=== PATIENT | female | born 1950 | race Caucasian/White ===

== ENCOUNTER 2021-05-05 19:18 | Inpatient (IN) | payer OTHER ==
[~2021-05-05] VITALS: Ht 167.6 cm; Wt 96.7 kg
[2021-05-05 20:34] LABS: BASOPHILS ABSOLUTE AUTO 0.03 K/mm3 (0.00-0.23); BASOPHILS PERCENT AUTO 0 % (0-2); EOSINOPHILS ABSOLUTE AUTO 0.31 K/mm3 (0.00-0.68); EOSINOPHILS PERCENT AUTO 3 % (0-6); Hematocrit 50.2 % (33.0-51.0); Hemoglobin 16.3 g/dL (11.5-16.0); IMMATURE GRAN ABSOLUTE AUTO 0.06 K/mm3 (0.00-0.10); IMMATURE GRAN PERCENT AUTO 1 % (0-1); LYMPHOCYTES ABSOLUTE AUTO 0.12 K/mm3 (0.84-5.20); LYMPHOCYTES PERCENT AUTO 1 % (21-46); MONOCYTES ABSOLUTE AUTO 0.45 K/mm3 (0.16-1.47); MONOCYTES PERCENT AUTO 4 % (4-13); Mean Corpuscular HGB 31.7 pg (26.0-34.0); Mean Corpuscular HGB Conc 32.5 g/dL (31.5-36.5); Mean Corpuscular Volume 98 fL (80-100); Mean Platelet Volume 9.4 fL (9.1-12.4); NEUTROPHILS ABSOLUTE AUTO 9.79 K/mm3 (1.96-9.15); NEUTROPHILS PERCENT AUTO 91 % (41-73); Platelet Count 172 K/mm3 (150-400); RDW Coefficient Variation 12.5 % (11.7-14.2); RDW Standard Deviation 45.5 fL (35.1-46.3); Red Blood Cell Count 5.15 M/mm3 (3.80-5.20); White Blood Cell Count 10.76 K/mm3 (4.00-11.30)
[2021-05-05 20:58] LABS: Albumin, Blood 3.3 g/dL (3.4-5.0); Albumin/Globulin Ratio 0.9 (0.8-1.8); Bilirubin, Total 1.2 mg/dL (0.1-1.0); Calcium, Blood 9.2 mg/dL (8.5-10.1); Creatinine, Blood 1.96 mg/dL (0.40-1.00); Globulin, Blood 3.8 g/dL (2.2-4.0); Potassium, Blood 4.7 mmol/L (3.5-5.5); Total Protein, Blood 7.1 g/dL (6.4-8.2)
[2021-05-06 00:08] LABS: Source, Urine Clean Catch
[2021-05-06 00:14] LABS: Glucose Qualitative, Urine Neg (Neg); Ketones, Urine Neg (Neg); Nitrite, Urine Neg (Neg)
[2021-05-06 00:16] LABS: Appearance, Urine Cloudy (Clear); Bilirubin, Urine 1+ (Neg); Color, Urine Yellow (P-Yellow); Leukocyte Esterase, Urine 1+ (Neg); Protein, Urine 2+ (Neg); Urobilinogen, Urine 1+ (Normal)
[2021-05-06 00:17] LABS: Blood, Urine 2+ (Neg)
[2021-05-06 00:22] LABS: Amorphous Heavy (0-Heavy); Bacteria Mod /hpf; Red Blood Cells, Urine 0-2 /hpf (0-2); Squamous Epithelial Cells Few /hpf (Few); WBC Cast Rare /lpf (0)
[2021-05-06 01:31] LABS: Influenza A, PCR NEGATIVE (NEGATIVE); Influenza B, PCR NEGATIVE (NEGATIVE); Resp Syncytial Virus, PCR NEGATIVE (NEGATIVE); SARS-Cov-2 (COVID-19) PCR, MMC NEGATIVE (NEGATIVE)
[2021-05-06 01:49] LABS: Hematocrit 45.2 % (33.0-51.0); Hemoglobin 14.6 g/dL (11.5-16.0); Mean Corpuscular HGB 31.8 pg (26.0-34.0); Mean Corpuscular HGB Conc 32.3 g/dL (31.5-36.5); Mean Corpuscular Volume 99 fL (80-100); Mean Platelet Volume 9.6 fL (9.1-12.4); Platelet Count 162 K/mm3 (150-400); RDW Coefficient Variation 12.7 % (11.7-14.2); RDW Standard Deviation 45.9 fL (35.1-46.3); Red Blood Cell Count 4.59 M/mm3 (3.80-5.20); White Blood Cell Count 12.03 K/mm3 (4.00-11.30)
[2021-05-06 02:08] LABS: Albumin, Blood 2.9 g/dL (3.4-5.0); Albumin/Globulin Ratio 0.9 (0.8-1.8); Bun/Creatinine Ratio 21.9 (12.0-20.0); Calcium, Blood 8.6 mg/dL (8.5-10.1); Creatinine, Blood 2.47 mg/dL (0.40-1.00); Globulin, Blood 3.3 g/dL (2.2-4.0); Potassium, Blood 4.4 mmol/L (3.5-5.5); Total Protein, Blood 6.2 g/dL (6.4-8.2)
[2021-05-06 02:10] LABS: BAND PERCENT MAN 11 % (0-8); BASOPHILS PERCENT MAN 0 % (0-2); EOSINOPHILS ABSOLUTE MAN 0.12 K/mm3 (0.00-0.68); EOSINOPHILS PERCENT MAN 1 % (0-6); LYMPHOCYTES ABSOLUTE MAN 0.12 K/mm3 (0.84-5.20); LYMPHOCYTES PERCENT MAN 1 % (21-46); MONOCYTES ABSOLUTE MAN 0.84 K/mm3 (0.16-1.47); MONOCYTES PERCENT MAN 7 % (4-13); NEUTROPHILS ABSOLUTE MAN 10.94 K/mm3 (1.96-9.15); SEG NEUTROPHILS PERCENT MAN 80 % (41-73); TOTAL CELLS COUNTED 100
[2021-05-06] MEDS ORDERED: OMEP20ER PO (03:38)
--- NOTE | 2021-05-06 06:26 | NUR ---
SHIFT SUMMARY PATIENT SLEPT THROUGHOUT SHIFT AFTER ARRIVING TO ICU FROM ED. TEMP REMAINS IN THE 99'SF. NS STILL INF TO RFA 22G IV. PATIENT HAD ONE BM AND VOIDED ONCE DURING SHIFT. SEE ASSESSMENTS FOR FURTHER INFO. NO OTHER MAJOR CHANGES.
--- NOTE | 2021-05-06 09:34 | NUR ---
Patient up to bathroom and walks with SBA. She is sitting at bedside eating breakfast and tolearted am meds.
--- NOTE | 2021-05-06 12:30 | NUR ---
Patient has been up independent to bathroom and repositions self. VSS. CBG 129. Patient tolerated lunch and 100% and 360 ml of liquids. Remains med no tele.;
--- NOTE | 2021-05-06 18:05 | NUR ---
Patient remains on RA and sats >90%. She is independent in room and is up to bathroom by self and stable. Right wound dressing intact and had no signs of drainage. She tolerated 100% of dinner and meds. VSS. She remains med status.
[2021-05-06 21:14] LABS: Vancomycin, Random 7.1 ug/mL
[2021-05-07 03:49] LABS: Hematocrit 42.4 % (33.0-51.0); Hemoglobin 13.6 g/dL (11.5-16.0); Mean Corpuscular HGB 31.9 pg (26.0-34.0); Mean Corpuscular HGB Conc 32.1 g/dL (31.5-36.5); Mean Corpuscular Volume 99 fL (80-100); Mean Platelet Volume 9.6 fL (9.1-12.4); Platelet Count 143 K/mm3 (150-400); RDW Standard Deviation 48.2 fL (35.1-46.3); Red Blood Cell Count 4.27 M/mm3 (3.80-5.20); White Blood Cell Count 6.05 K/mm3 (4.00-11.30)
[2021-05-07 04:24] LABS: Albumin, Blood 2.6 g/dL (3.4-5.0); Albumin/Globulin Ratio 0.8 (0.8-1.8); Bilirubin, Total 0.7 mg/dL (0.1-1.0); Bun/Creatinine Ratio 35.3 (12.0-20.0); Calcium, Blood 8.3 mg/dL (8.5-10.1); Creatinine, Blood 1.16 mg/dL (0.40-1.00); Globulin, Blood 3.3 g/dL (2.2-4.0); Potassium, Blood 4.2 mmol/L (3.5-5.5); Thyroid Stimulating Hormone 0.394 uIU/mL (0.360-4.800); Total Protein, Blood 5.9 g/dL (6.4-8.2)
--- NOTE | 2021-05-07 06:28 | NUR ---
SHIFT SUMMARY PATIENT SLEPT T/O SHIFT. USED CALL LIGHT TO MAKE NEEDS KNOWN. REQUIRED ONE DOSE TYLENOL 650MG PO FOR FEVER OF 100.9. ABLE TO TRANSFER ON OWN AND WALK ABOUT ROOM. NO CHANGES DURING SHIFT.
--- NOTE | 2021-05-07 09:05 | NUR ---
0700: SBR FROM TINO TRAORE. PT RESTING IN ROOM, NO DISTRESS NOTED. BED IN LOW/LOCKED POSITION, CLUTTER-FREE ENVIRONMENT, CALL LIGHT IN REACH. PT DEMONSTRATES UNDERSTANDING OF CALL LIGHT AND BED CONTROLS FOR POSITION ADJUSTMENT. PT STATES SHE WILL ONLY AMBULATE WHEN WEARING NON-SKID SOCKS.
[2021-05-07] MEDS ORDERED: CLIN150 PO (10:00)
[2021-05-07] MEDS ORDERED: LEVFLO500 PO (10:01)
--- NOTE | 2021-05-07 10:50 | NUR ---
1045: IV D/C'D TIP INTACT, NO S/S OF INFILTRATION, NO BLEEDING NOTED, DRESSING APPLIED AND PT VERBALIZED UNDERSTANDING TO REMOVE AFTER 1 HR. PACKING REMOVED FROM L GROIN PER PT REQUEST. MEPILEX EQUIVALENT DRESSING APPLIED AND PT VERBALIZED UNDERSTANDING TO REMOVE AFTER 1 DAY TO CHECK FOR INCREASING S/S OF INFECTION, AFTER WHICH SHE CAN REPLACE DRESSING AND MAINTAIN PER FELLER SEAM OPERATOR INSTRUCTIONS. SHE VERBALIZED UNDERSTANDING OF S/S OF INFECTION. PT BROUGHT TO VEHICLE VIA W/C BY THIS RN AND WAS SENT HOME W/ DAUGHTER IN POV.
== END 2021-05-07 10:45 | disposition home or self-care (01) | DRG 872 ==
LOC: ER 19:18 → ICUW 05-06 00:51
PROVIDERS: Internal Medicine; Physician Assistant; Student in an Organized Health Care Education/Training Program; ADMIT Internal Medicine
DX: A41.9 Sepsis, unspecified organism (principal); N17.9 Acute kidney failure, unspecified; L03.314 Cellulitis of groin; R73.9 Hyperglycemia, unspecified; Z88.0 Allergy status to penicillin; I95.9 Hypotension, unspecified; F17.210 Nicotine dependence, cigarettes, uncomplicated; E86.0 Dehydration; Z86.14 Personal history of Methicillin resistant Staphylococcus aureus infection; D72.829 Elevated white blood cell count, unspecified; F43.9 Reaction to severe stress, unspecified; Z20.822 Contact with and (suspected) exposure to COVID-19
CPT/HCPCS: 0241U; 36415; 71045; 80053; 80202; 81001; 82947; 83605; 83880; 84443; 85025; 85027; 87040; 87086; 93005; 93010; 93306; 96374; 96375; 99285-25; A9270; J0456; J0696; J1650; J3370; J7030; J7050

== ENCOUNTER 2022-06-28 12:24 | Inpatient (IN) | payer OTHER ==
[~2022-06-28] VITALS: Ht 165.1 cm; Wt 107.1 kg
[~2022-06-28 12:24] MED LIST: CLIN150 PO; LEVFLO500 PO; OMEP20ER PO
[2022-06-28] MEDS ORDERED: SULFAMETHOXAZO1 EAC1 PO (13:05)
[2022-06-28 13:13] LABS: BASOPHILS ABSOLUTE AUTO 0.06 K/mm3 (0.00-0.23); BASOPHILS PERCENT AUTO 0 % (0-2); EOSINOPHILS ABSOLUTE AUTO 0.27 K/mm3 (0.00-0.68); EOSINOPHILS PERCENT AUTO 2 % (0-6); IMMATURE GRAN ABSOLUTE AUTO 0.06 K/mm3 (0.00-0.10); IMMATURE GRAN PERCENT AUTO 0 % (0-1); LYMPHOCYTES PERCENT AUTO 13 % (21-46); MONOCYTES ABSOLUTE AUTO 1.25 K/mm3 (0.16-1.47); MONOCYTES PERCENT AUTO 7 % (4-13); Mean Corpuscular HGB 32.1 pg (26.0-34.0); Mean Corpuscular HGB Conc 33.3 g/dL (31.5-36.5); Mean Corpuscular Volume 96 fL (80-100); Mean Platelet Volume 9.1 fL (9.1-12.4); NEUTROPHILS ABSOLUTE AUTO 13.49 K/mm3 (1.96-9.15); NEUTROPHILS PERCENT AUTO 78 % (41-73); Platelet Count 238 K/mm3 (150-400); RDW Coefficient Variation 12.7 % (11.7-14.2); Red Blood Cell Count 4.98 M/mm3 (3.80-5.20); White Blood Cell Count 17.33 K/mm3 (4.00-11.30)
[2022-06-28 13:31] LABS: Albumin, Blood 3.3 g/dL (3.4-5.0); Albumin/Globulin Ratio 0.8 (0.8-1.8); Bilirubin, Total 0.6 mg/dL (0.1-1.0); Bun/Creatinine Ratio 22.6 (12.0-20.0); Calcium, Blood 9.2 mg/dL (8.5-10.1); Creatinine, Blood 1.59 mg/dL (0.40-1.00); Globulin, Blood 3.9 g/dL (2.2-4.0); Potassium, Blood 4.8 mmol/L (3.5-5.5); Total Protein, Blood 7.2 g/dL (6.4-8.2)
[2022-06-28 14:15] LABS: Base Excess Venous 1.3 mmol/L; Bicarbonate Venous 24.2 mmol/L (24.0-30.0); PCO2 Venous 56.7 mmHg (38-42)
[2022-06-28 14:47] LABS: Influenza A, PCR NEGATIVE (NEGATIVE); Influenza B, PCR NEGATIVE (NEGATIVE); Resp Syncytial Virus, PCR NEGATIVE (NEGATIVE); SARS-Cov-2 (COVID-19) PCR, MMC NEGATIVE (NEGATIVE)
[2022-06-28 15:19] LABS: Source, Urine Straight Cath
[2022-06-28 15:24] LABS: Appearance, Urine Hazy (Clear); Bilirubin, Urine Neg (Neg); Blood, Urine 1+ (Neg); Color, Urine Yellow (P-Yellow); Glucose Qualitative, Urine Neg (Neg); Ketones, Urine Neg (Neg); Leukocyte Esterase, Urine 1+ (Neg); Nitrite, Urine Neg (Neg); Protein, Urine 2+ (Neg); Urobilinogen, Urine NORM (Normal)
[2022-06-28 15:36] LABS: Bacteria Few /hpf; Red Blood Cells, Urine 0-2 /hpf (0-2); Squamous Epithelial Cells Few /hpf (Few)
[2022-06-28 15:37] LABS: Amorphous Light (0-Heavy); WBC Cast 0-2 /lpf (0)
[2022-06-28 18:03] LABS: Base Excess Venous -2.2 mmol/L; Bicarbonate Venous 22.2 mmol/L (24.0-30.0); PCO2 Venous 45.4 mmHg (38-42); pH Blood Venous 7.33 (7.34-7.37)
--- NOTE | 2022-06-28 19:38 | NUR ---
SHIFT SUMMARY PTN ARRIVED ER ADMIT AT 1610. STACI JIMÉNEZ GOT REPORT FROM ER PRIOR TO ARRIVAL. PTN HAS BEEN SLEEPING BUT AROUSABLE SINCE ARRIVAL, HOWEVER, SHE HAS HAD MOMENTS WHERE SHE TRIED TO GET OUT OF BED, TOOK HER PULSE OXIMETER MONITOR OFF HER FINGER, TOOK HER CLOTHES OFF, AND SOMEHOW DISCOUNTED HER IV LINE FROM THE RUNNING BAG RUNNING. SHE WAS ABLE TO SAY THE CORRECT DAY, MONTH, YEAR, WHERE SHE WAS AND WHY SHE IS HERE, STATING THAT SHE HAS BEEN CONFUSED AND NOT FEELING WELL FOR THE PAST COUPLE OF DAYS. PTN WILL POSSIBLY BE TRANSFERRED TO BACK [facility]. REPORT GIVEN TO FAUZIA JIMÉNEZ.
[2022-06-29 05:11] LABS: Base Excess Venous -0.3 mmol/L; PCO2 Venous 43.5 mmHg (38-42); pH Blood Venous 7.37 (7.34-7.37)
[2022-06-29 05:35] LABS: Albumin, Blood 3.4 g/dL (3.4-5.0); Bilirubin, Total 0.4 mg/dL (0.1-1.0); Bun/Creatinine Ratio 34.8 (12.0-20.0); Calcium, Blood 8.8 mg/dL (8.5-10.1); Creatinine, Blood 0.86 mg/dL (0.40-1.00); Globulin, Blood 3.4 g/dL (2.2-4.0); Potassium, Blood 4.7 mmol/L (3.5-5.5); Total Protein, Blood 6.8 g/dL (6.4-8.2)
[2022-06-29 05:56] LABS: BASOPHILS ABSOLUTE AUTO 0.04 K/mm3 (0.00-0.23); BASOPHILS PERCENT AUTO 0 % (0-2); EOSINOPHILS ABSOLUTE AUTO 0.28 K/mm3 (0.00-0.68); EOSINOPHILS PERCENT AUTO 2 % (0-6); Hematocrit 43.4 % (33.0-51.0); Hemoglobin 14.2 g/dL (11.5-16.0); IMMATURE GRAN ABSOLUTE AUTO 0.06 K/mm3 (0.00-0.10); IMMATURE GRAN PERCENT AUTO 1 % (0-1); LYMPHOCYTES ABSOLUTE AUTO 2.64 K/mm3 (0.84-5.20); LYMPHOCYTES PERCENT AUTO 23 % (21-46); MONOCYTES ABSOLUTE AUTO 0.93 K/mm3 (0.16-1.47); MONOCYTES PERCENT AUTO 8 % (4-13); Mean Corpuscular HGB 31.7 pg (26.0-34.0); Mean Corpuscular HGB Conc 32.7 g/dL (31.5-36.5); Mean Corpuscular Volume 97 fL (80-100); NEUTROPHILS ABSOLUTE AUTO 7.79 K/mm3 (1.96-9.15); NEUTROPHILS PERCENT AUTO 66 % (41-73); RDW Coefficient Variation 12.8 % (11.7-14.2); RDW Standard Deviation 45.1 fL (35.1-46.3); Red Blood Cell Count 4.48 M/mm3 (3.80-5.20); White Blood Cell Count 11.74 K/mm3 (4.00-11.30)
[2022-06-29 05:57] LABS: Mean Platelet Volume 9.6 fL (9.1-12.4); Platelet Count 202 K/mm3 (150-400)
--- NOTE | 2022-06-29 07:26 | NUR ---
SONG AND DANCE PERFORMER SUMMARY PT TRANSFERED FROM MEDICAL FLOOR TO SCU UNIT DUE TO EPISODES OF CONFUSION. PT IS A/OX3 WITH CONFUSION/FORGETFULLNESS. PT ABLE TO STATE WHERE SHE IS AT BUT BECOMES CONFUSED AND PULLS OFF HER NC AND PULSE OX. PT IS A SBA TO THE BS. SHE IS WEAK AND SOB WITH ACTIVITY. PT ON 3L O2 NC. CONT PULSE OX; PT DESATS WITH ACTIVITY OR WHEN REMOVING CANNULA. LR INFUSING AT 125 HR. PT ON REMOTE MONITOR. BED ALARM IS SET; PT WILL ATTEMPT OOB W/O CALLING. NOT USING CALL LIGHT TO REACH STAFF FOR NEEDS. PT HAS FEQUENT URINATION T/O THE NIGHT WITH SMALL VOIDS.
[2022-06-29] MEDS ORDERED: LINE600 PO (16:17)
[2022-06-29] MEDS ORDERED: VISBIOME 112.51 EACH PO (16:18)
== END 2022-06-29 16:45 | disposition home or self-care (01) | DRG 602 ==
LOC: ER 12:24 → MEDS 14:53
PROVIDERS: Nurse Practitioner Acute Care; Student in an Organized Health Care Education/Training Program; ADMIT Internal Medicine
DX: L02.211 Cutaneous abscess of abdominal wall (principal); G92.8 Other toxic encephalopathy; J96.91 Respiratory failure, unspecified with hypoxia; N18.4 Chronic kidney disease, stage 4 (severe); E87.29 Other acidosis; R91.8 Other nonspecific abnormal finding of lung field; Z20.822 Contact with and (suspected) exposure to COVID-19; I48.91 Unspecified atrial fibrillation; K21.9 Gastro-esophageal reflux disease without esophagitis; E66.01 Morbid (severe) obesity due to excess calories; F17.210 Nicotine dependence, cigarettes, uncomplicated; L01.03 Bullous impetigo; L03.311 Cellulitis of abdominal wall; Z23 Encounter for immunization; Z98.890 Other specified postprocedural states; Z79.899 Other long term (current) drug therapy; Z86.14 Personal history of Methicillin resistant Staphylococcus aureus infection; Z68.38 Body mass index [BMI] 38.0-38.9, adult; Z88.0 Allergy status to penicillin
CPT/HCPCS: 0241U; 36415; 51701; 71046; 80053; 81001; 82803; 83605; 84145; 85025; 87040; 87086; 90686; 93005; 93010; 94640; 94664; 94762; 96365-59; 96367-59; 99285-25; A9270; J0696; J1650; J3370; J7030; J7050; J7120

== ENCOUNTER 2022-12-04 08:02 | Day surgery (SDC) | payer OTHER ==
[~2022-12-04] VITALS: Ht 165.1 cm; Wt 102.1 kg
[~2022-12-04 08:02] MED LIST changes: +LINE600 PO; +SULFAMETHOXAZO1 EAC1 PO; +VISBIOME 112.51 EACH PO
[2022-12-04] MEDS ORDERED: ALBU2.5V5 (08:32)
[2022-12-04] MEDS ORDERED: CENTRUM SILVER1 EAC2 (08:33)
[2022-12-04] MEDS ORDERED: FLAX (08:33)
[2022-12-04] MEDS ORDERED: Vitamin C100 M1 (08:33)
[2022-12-04] MEDS ORDERED: COLLAGEN SKIN1 EACH (08:33)
[2022-12-04] MEDS ORDERED: MAGCHL64ER (08:34)
[2022-12-04 10:53] VITALS: BP 143/66
--- NOTE | 2022-12-04 10:59 | NUR ---
12/04/22 1059 [facility] UPON ARRIVAL TO STEPDOWN PT OXYGEN WAS 89-91% AND PATIENT'S LUNGS WERE DIMINISHED. AFTER ENCOURGEMENT TO TAKE SOME DEEP BREATHS AND COUGH PATIENT'S SPO2 IMPROVED TO 93-95% AND LUNGS WERE CLEAR WITH SLIGHT DIMINSHED ON FILLING TECHNICIAN LOWER RIGHT BUT AIR MOVEMENT STILL HEARD. PATIENT OFFERED BREATHING TREATMENT BUT SHE STATED THAT SHE FELT FINE AND DECLINED BREATHING TREATMENT. PATIENT HAS COPD AND SPO2 DURING ADMIT PRIOR TO PROCEDURE WAS 92%. PATIENT MAINTAINING 93-95% NOW AND EXPRESSES READINESS TO GO HOME. PATIENT ENCOURAGED TO QUIT SMOKING. PATIENT VERBALIZED UNDERSTANDING.
== END 2022-12-04 10:55 | disposition home or self-care (01) ==
LOC: ORSCSDS 08:02
PROVIDERS: Surgery
PROC: 0DJD8ZZ Inspection of Lower Intestinal Tract, Via Natural or Artificial Opening Endoscopic (ICD-10-PCS; principal; 2022-12-04 09:15)
DX: Z12.11 Encounter for screening for malignant neoplasm of colon (principal); K57.30 Diverticulosis of large intestine without perforation or abscess without bleeding; F17.210 Nicotine dependence, cigarettes, uncomplicated; J44.9 Chronic obstructive pulmonary disease, unspecified; I10 Essential (primary) hypertension; Z79.899 Other long term (current) drug therapy; E66.9 Obesity, unspecified; Z68.37 Body mass index [BMI] 37.0-37.9, adult
CPT/HCPCS: J2405; J2704; J7120

== ENCOUNTER → 2024-04-20 | Outpatient (CLI) | payer OTHER ==
[~2024-04-20] MED LIST changes: +ALBU2.5V5; +CENTRUM SILVER1 EAC2; +CODACE30 PO; +COLLAGEN SKIN1 EACH; +FLAX; +GLYCOPYRROLATE INH; +HYDCHL25 PO; +IBUP600 PO; +LOSARTAN POTASS25 M2 PO; +MAGCHL64ER; +METFORMIN HCL500 M2 PO; +NICO21TP TOP; +PRED20 PO; +PROAIR RESPICL90 MCG INH; +ROSUVASTATIN CA10 MG PO; +STIOLTO RESPIMAT4 G1 INH; +Vitamin C100 M1; +[UNRECOGNIZED DRUG - OTHER] INH
[2024-04-20 12:18] LABS: BASOPHILS ABSOLUTE AUTO 0.05 K/mm3 (0.00-0.23); BASOPHILS PERCENT AUTO 0 % (0-2); EOSINOPHILS PERCENT AUTO 1 % (0-6); Hematocrit 41.6 % (33.0-51.0); Hemoglobin 13.6 g/dL (11.5-16.0); IMMATURE GRAN ABSOLUTE AUTO 0.14 K/mm3 (0.00-0.10); IMMATURE GRAN PERCENT AUTO 1 % (0-1); LYMPHOCYTES ABSOLUTE AUTO 1.78 K/mm3 (0.84-5.20); LYMPHOCYTES PERCENT AUTO 15 % (21-46); MONOCYTES ABSOLUTE AUTO 1.01 K/mm3 (0.16-1.47); MONOCYTES PERCENT AUTO 8 % (4-13); Mean Corpuscular HGB 31.9 pg (26.0-34.0); Mean Corpuscular HGB Conc 32.7 g/dL (31.5-36.5); Mean Corpuscular Volume 97 fL (80-100); Mean Platelet Volume 8.6 fL (9.1-12.4); NEUTROPHILS PERCENT AUTO 75 % (41-73); Platelet Count 293 K/mm3 (150-400); RDW Coefficient Variation 12.2 % (11.7-14.2); RDW Standard Deviation 44.1 fL (35.1-46.3); Red Blood Cell Count 4.27 M/mm3 (3.80-5.20); White Blood Cell Count 12.08 K/mm3 (4.00-11.30)
[2024-04-20 12:39] LABS: Albumin, Blood 3.5 g/dL (3.4-5.0); Albumin/Globulin Ratio 0.8 (0.8-1.8); Bilirubin, Total 0.2 mg/dL (0.1-1.0); Bun/Creatinine Ratio 35.1 (12.0-20.0); Calcium, Blood 8.9 mg/dL (8.5-10.1); Creatinine, Blood 2.25 mg/dL (0.40-1.00); Globulin, Blood 4.5 g/dL (2.2-4.0); Potassium, Blood 4.3 mmol/L (3.5-5.5)
== END | disposition home or self-care (01) ==
LOC: LAB SHORT 11:57 → LAB 11:57
PROVIDERS: Physician Assistant
DX: E86.0 Dehydration (principal); R31.9 Hematuria, unspecified
CPT/HCPCS: 80053; 83605; 85025; 87040; 87077; 87086; 87186

== ENCOUNTER 2024-04-21 10:22 | Inpatient (IN) | payer OTHER ==
[~2024-04-21] VITALS: Ht 170.2 cm; Wt 100.8 kg
[~2024-04-21 10:22] MED LIST changes: -CODACE30 PO; -GLYCOPYRROLATE INH; -HYDCHL25 PO; -IBUP600 PO; -LOSARTAN POTASS25 M2 PO; -METFORMIN HCL500 M2 PO; -NICO21TP TOP; -PRED20 PO; -PROAIR RESPICL90 MCG INH; -ROSUVASTATIN CA10 MG PO; -STIOLTO RESPIMAT4 G1 INH; -[UNRECOGNIZED DRUG - OTHER] INH
[2024-04-21 11:19] LABS: BASOPHILS ABSOLUTE AUTO 0.05 K/mm3 (0.00-0.23); BASOPHILS PERCENT AUTO 1 % (0-2); EOSINOPHILS ABSOLUTE AUTO 0.07 K/mm3 (0.00-0.68); EOSINOPHILS PERCENT AUTO 1 % (0-6); Hematocrit 41.7 % (33.0-51.0); Hemoglobin 14.4 g/dL (11.5-16.0); IMMATURE GRAN ABSOLUTE AUTO 0.11 K/mm3 (0.00-0.10); IMMATURE GRAN PERCENT AUTO 1 % (0-1); LYMPHOCYTES ABSOLUTE AUTO 1.61 K/mm3 (0.84-5.20); LYMPHOCYTES PERCENT AUTO 16 % (21-46); MONOCYTES ABSOLUTE AUTO 0.71 K/mm3 (0.16-1.47); MONOCYTES PERCENT AUTO 7 % (4-13); Mean Corpuscular HGB 32.3 pg (26.0-34.0); Mean Corpuscular HGB Conc 34.5 g/dL (31.5-36.5); Mean Corpuscular Volume 94 fL (80-100); NEUTROPHILS ABSOLUTE AUTO 7.56 K/mm3 (1.96-9.15); NEUTROPHILS PERCENT AUTO 75 % (41-73); RDW Coefficient Variation 11.9 % (11.7-14.2); RDW Standard Deviation 41.2 fL (35.1-46.3); Red Blood Cell Count 4.46 M/mm3 (3.80-5.20); White Blood Cell Count 10.11 K/mm3 (4.00-11.30)
[2024-04-21 11:34] LABS: Mean Platelet Volume 8.9 fL (9.1-12.4); Platelet Count 352 K/mm3 (150-400)
[2024-04-21 11:53] LABS: Albumin, Blood 3.5 g/dL (3.4-5.0); Albumin/Globulin Ratio 0.7 (0.8-1.8); Bilirubin, Total 0.4 mg/dL (0.1-1.0); Bun/Creatinine Ratio 77.3 (12.0-20.0); Calcium, Blood 9.2 mg/dL (8.5-10.1); Creatinine, Blood 0.69 mg/dL (0.40-1.00); Magnesium, Blood 3.1 mg/dL (1.6-2.4); Phosphorus, Blood 2.5 mg/dL (2.5-4.9); Potassium, Blood 5.3 mmol/L (3.5-5.5); Total Protein, Blood 8.5 g/dL (6.4-8.2)
[2024-04-21] MEDS ORDERED: Lactated Ringer's 1,000 ML IV ONE (12:00)
[2024-04-21] MEDS ORDERED: Ibuprofen 600 MG Tab PO ONE (14:30)
[2024-04-21] MEDS ORDERED: Acetaminophen 500 MG Tab PO ONE (14:30)
[2024-04-21] MEDS ORDERED: Clindamycin 900mg in D5W 50ML 50 ML IV ONE (14:30)
[2024-04-21] MEDS ORDERED: Dexamethasone Sod Phos 10 MG/ML 1ML VIAL IV ONE (14:30)
[2024-04-21] MEDS ORDERED: HYDCHL25 PO (15:10)
[2024-04-21] MEDS ORDERED: ROSUVASTATIN CA10 MG PO (15:11)
[2024-04-21] MEDS ORDERED: METFORMIN HCL500 M2 PO (15:11)
[2024-04-21] MEDS ORDERED: PROAIR RESPICL90 MCG INH (15:12)
[2024-04-21] MEDS ORDERED: LOSARTAN POTASS25 M2 PO (15:12)
[2024-04-21] MEDS ORDERED: STIOLTO RESPIMAT4 G1 INH (15:13)
[2024-04-21] MEDS ORDERED: Bisacodyl 10 MG Supp PR PRN (15:15)
[2024-04-21] MEDS ORDERED: NS 1,000 ML IV SCH (15:20)
[2024-04-21] MEDS ORDERED: Ondansetron 4 MG TAB PO PRN (15:20)
[2024-04-21] MEDS ORDERED: Magnesium Hydroxide Conc 10 ML UDC PO PRN (15:20)
[2024-04-21] MEDS ORDERED: FLU VACC TS2024-25(6MOS UP)/PF 45 MCG/0.5 ML SYRINGE IM PRN (15:20)
[2024-04-21] MEDS ORDERED: Acetaminophen 500 MG Tab PO PRN (15:25)
[2024-04-21] MEDS ORDERED: Ibuprofen 600 MG Tab PO PRN (15:25)
[2024-04-21] MEDS ORDERED: Ipratropium/Albuterol SulF 2.5-0.5MG/3 ML Amp INH PRN (15:30)
[2024-04-21] MEDS ORDERED: Dexamethasone Sod Phos 10 MG/ML 1ML VIAL IV SCH (16:00)
[2024-04-21] MEDS ORDERED: Insulin Human Lispro 100 Units/ML 3ML Syringe SC SCH (16:30)
--- NOTE | 2024-04-21 18:08 | NUR ---
PT ARRIVED ON MED FLOOR WITH DAUGHTER AT BEDSIDE. UNABLE TO DO ADMIT AT THIS TIME DUE TO ADMITTING/ER PROCESSES. CHEMISTRY QUALITY CONTROL TECHNICIAN AWARE AND WILL NOTIFY RN WHEN ABLE TO ADMIT
[2024-04-21 18:17] VITALS: BP 142/85
[2024-04-21] MEDS ORDERED: CLIN150 PO (18:18)
[2024-04-21] MEDS ORDERED: CODACE30 PO (18:18)
--- NOTE | 2024-04-21 19:19 | NUR ---
PT FALLING ASLEEP DURING QUESTIONING, ORIENTED X4, SHALLOW BREATHING, 88% R/A. DR. BARRIOS NOTIFIED, PER MD, WILL BE ORDERING VBG AND NICOTINE PATCH. PLACE PT ON 1L NC
[2024-04-21 19:49] VITALS: BP 142/90
[2024-04-21 21:07] LABS: Base Excess Venous -3.5 mmol/L; Bicarbonate Venous 21.6 mmol/L (24.0-30.0); PCO2 Venous 41.9 mmHg (38-42); pH Blood Venous 7.34 (7.34-7.37)
--- NOTE | 2024-04-21 21:14 | NUR ---
Pt with decreased sats from start of my shift at 1845, was on 1L of O2, now on 4L to keep sats >90%.
[2024-04-22] MEDS ORDERED: Clindamycin 900mg in D5W 50ML 50 ML IV SCH
--- NOTE | 2024-04-22 02:16 | NUR ---
Ptt with low O2 sats 85%, up to BR at time so was doing activity without any O2. O2 now at 5L/ NC.
[2024-04-22 03:42] VITALS: BP 185/84
[2024-04-22 04:06] VITALS: BP 135/77
--- NOTE | 2024-04-22 04:12 | NUR ---
Pt A&OO x4, VS b/p elevated this am, but this was after an activity, rechecked and b/p decreased significantly. O2 sats decreased in night without activity and O2 now at 5L, continues to decrease with activity but does correct itself with rest. Pt has to sleep with HOB elevated. Denies pain. L/S are diminished in several lobes, no cough noted this shift, and no edema. Pt up to BR with assist and FWW to BR. Awaiting ENT consult for potential drainage of abscess.
[2024-04-22 06:26] LABS: BASOPHILS ABSOLUTE AUTO 0.05 K/mm3 (0.00-0.23); BASOPHILS PERCENT AUTO 1 % (0-2); EOSINOPHILS ABSOLUTE AUTO 0.01 K/mm3 (0.00-0.68); EOSINOPHILS PERCENT AUTO 0 % (0-6); Hematocrit 38.8 % (33.0-51.0); Hemoglobin 13.2 g/dL (11.5-16.0); IMMATURE GRAN ABSOLUTE AUTO 0.14 K/mm3 (0.00-0.10); IMMATURE GRAN PERCENT AUTO 2 % (0-1); LYMPHOCYTES ABSOLUTE AUTO 1.31 K/mm3 (0.84-5.20); LYMPHOCYTES PERCENT AUTO 16 % (21-46); MONOCYTES PERCENT AUTO 5 % (4-13); Mean Corpuscular HGB 32.7 pg (26.0-34.0); Mean Corpuscular Volume 96 fL (80-100); NEUTROPHILS ABSOLUTE AUTO 6.44 K/mm3 (1.96-9.15); NEUTROPHILS PERCENT AUTO 77 % (41-73); RDW Coefficient Variation 11.9 % (11.7-14.2); RDW Standard Deviation 41.7 fL (35.1-46.3); Red Blood Cell Count 4.04 M/mm3 (3.80-5.20); White Blood Cell Count 8.35 K/mm3 (4.00-11.30)
[2024-04-22 06:27] LABS: Mean Platelet Volume 8.5 fL (9.1-12.4)
[2024-04-22 06:38] LABS: Bun/Creatinine Ratio 67.8 (12.0-20.0); Calcium, Blood 8.9 mg/dL (8.5-10.1); Creatinine, Blood 0.58 mg/dL (0.40-1.00); Potassium, Blood 4.4 mmol/L (3.5-5.5)
[2024-04-22 07:47] VITALS: BP 140/86
[2024-04-22] MEDS ORDERED: Nicotine 21 MG PATCH TOP SCH (09:00)
[2024-04-22] MEDS ORDERED: Losartan Potassium 25 MG Tab PO SCH (09:00)
[2024-04-22] MEDS ORDERED: Rosuvastatin Calcium 10 MG Tab PO SCH (09:00)
[2024-04-22] MEDS ORDERED: Enoxaparin 40 MG/0.4 ML SYR SC SCH (09:00)
[2024-04-22] MEDS ORDERED: HydroCHLOROthiazide 25 mg Tab PO SCH (09:00)
[2024-04-22] MEDS ORDERED: Ipratropium/Albuterol SulF 2.5-0.5MG/3 ML Amp INH SCH (11:45)
[2024-04-22 15:20] VITALS: BP 140/106
--- NOTE | 2024-04-22 17:25 | NUR ---
PT REPORTS FEELING BETTER, AWAITING ENT CONSULT. DR. CORNEJO OFFICE CONTACTED, MD WAS IN SURGERY AT THE TIME. PT FAMILY AT BEDSIDE. O2 NEEDS INCREASE WITH AMBULATION PT DESAT TO 82% WITH AMBULATION TO BATHROOM, MAY NEED HOME O2 EVAL. INDEPENDENT, ALERT AND ORIENTED X4, CALLS APPROPRIATELY. REPORTS 1-2/10 PAIN IN JAW, DECLINES PAIN MEDICATION. IV ANTIBIOTICS CONTINUED
[2024-04-22] MEDS ORDERED: BEVESPI AEROS10.7 G1 INH (18:39)
[2024-04-22 19:34] VITALS: BP 169/76
[2024-04-23 04:05] VITALS: BP 188/80
--- NOTE | 2024-04-23 05:22 | NUR ---
SHIFT SUMMARY. PATIENT IS A&OX4, INDEPENDENT IN ROOM AND CALLS APPROPRIATELY. PATIENT HAS AN INCREASED NEED FOR OXYGEN WITH AMBULATION-PATIENT DESATS INTO THE 80'S-PATIENT IS ON 3-4LPM RA IS BASELINE-PATIENT WOULD BENEFIT FROM HOME O2 EVAL. PATIENT REPORTS THAT APPROXIMATELY AROUND 0500 THAT SHE FELT IF HER ABCESS IN HER MOUTH MIGHT HAVE DRAINED-PATIENT REPORTS THAT SHE HAD SOME GROSS TASTING STUFF IN HER MOUTH AND SHE FEELS SLIGHT IMPROVEMENT TO THE PRESSURE IN HER MOUTH. PATIENT C/O PAIN-MEDICATED X3-4 TIMES. BED IS LOCKED IN THE LOWEST POSITION WITH CALL LIGHT IN REACH. CARE IS ONGOING.
[2024-04-23 06:16] LABS: BASOPHILS ABSOLUTE AUTO 0.04 K/mm3 (0.00-0.23); BASOPHILS PERCENT AUTO 0 % (0-2); EOSINOPHILS ABSOLUTE AUTO 0.02 K/mm3 (0.00-0.68); EOSINOPHILS PERCENT AUTO 0 % (0-6); Hematocrit 37.9 % (33.0-51.0); Hemoglobin 12.9 g/dL (11.5-16.0); IMMATURE GRAN PERCENT AUTO 1 % (0-1); LYMPHOCYTES ABSOLUTE AUTO 2.31 K/mm3 (0.84-5.20); LYMPHOCYTES PERCENT AUTO 19 % (21-46); MONOCYTES ABSOLUTE AUTO 1.13 K/mm3 (0.16-1.47); MONOCYTES PERCENT AUTO 9 % (4-13); Mean Corpuscular Volume 94 fL (80-100); Mean Platelet Volume 8.5 fL (9.1-12.4); NEUTROPHILS ABSOLUTE AUTO 8.38 K/mm3 (1.96-9.15); NEUTROPHILS PERCENT AUTO 70 % (41-73); Platelet Count 367 K/mm3 (150-400); RDW Coefficient Variation 11.7 % (11.7-14.2); RDW Standard Deviation 40.7 fL (35.1-46.3); Red Blood Cell Count 4.03 M/mm3 (3.80-5.20); White Blood Cell Count 11.98 K/mm3 (4.00-11.30)
[2024-04-23 06:36] LABS: Albumin, Blood 3.2 g/dL (3.4-5.0); Albumin/Globulin Ratio 0.8 (0.8-1.8); Bilirubin, Total 0.2 mg/dL (0.1-1.0); Bun/Creatinine Ratio 46.5 (12.0-20.0); Calcium, Blood 9.2 mg/dL (8.5-10.1); Creatinine, Blood 0.75 mg/dL (0.40-1.00); Globulin, Blood 4.2 g/dL (2.2-4.0); Potassium, Blood 3.8 mmol/L (3.5-5.5); Total Protein, Blood 7.4 g/dL (6.4-8.2)
[2024-04-23 07:38] VITALS: BP 184/84
[2024-04-23 07:40] VITALS: BP 134/77
[2024-04-23] MEDS ORDERED: Vancomycin HCL 2,000 MG in NS 500 ML IV ONE (15:40)
[2024-04-23 16:00] VITALS: BP 131/85
[2024-04-23] MEDS ORDERED: NS 250 ML IV PRN (16:20)
--- NOTE | 2024-04-23 18:18 | NUR ---
SHIFT SUMMARY PT AOX4, INDEPENDENT IN THE ROOM. MEDICATED FOR PAIN PER THE EMAR. NO OTHER ACUTE COMPLAINTS. PT CALLS AND MAKES HER NEEDS KNOWN. REPOSITIONS SELF IN BED. FAMILY AT THE BS ALL SHIFT. CALL LIGHT WITHIN REACH, BED LOCKED AND IN THE LOWEST POSITION. WILL REPORT TO ONCOMING NURSE.
[2024-04-23 19:33] VITALS: BP 112/79
[2024-04-23] MEDS ORDERED: Lactobacil 2-S.Thermo-Bifido 1 1 Cap PO SCH (21:00)
[2024-04-24 03:41] VITALS: BP 142/87
[2024-04-24] MEDS ORDERED: Vancomycin HCL 1,000 MG in NS 250 ML IV SCH (04:00)
--- NOTE | 2024-04-24 05:47 | NUR ---
SHIFT SUMMARY. PATIENT IS A&OX4. INDEPENDENT IN ROOM. MONAE CALLS APPROPRIATELY AND IS ABLE TO MAKE HER NEEDS KNOWN. PATIENT MEDICATED FOR PAIN PER PATIENT NEEDS. BED IS LOCKED IN THE LOWEST POSITION WITH CALL LIGHT IN REACH. CARE IS ONGOING.
[2024-04-24 06:17] LABS: BASOPHILS ABSOLUTE AUTO 0.03 K/mm3 (0.00-0.23); BASOPHILS PERCENT AUTO 0 % (0-2); EOSINOPHILS ABSOLUTE AUTO 0.02 K/mm3 (0.00-0.68); EOSINOPHILS PERCENT AUTO 0 % (0-6); Hematocrit 35.6 % (33.0-51.0); Hemoglobin 12.4 g/dL (11.5-16.0); IMMATURE GRAN ABSOLUTE AUTO 0.08 K/mm3 (0.00-0.10); IMMATURE GRAN PERCENT AUTO 1 % (0-1); LYMPHOCYTES ABSOLUTE AUTO 2.41 K/mm3 (0.84-5.20); LYMPHOCYTES PERCENT AUTO 23 % (21-46); MONOCYTES ABSOLUTE AUTO 0.96 K/mm3 (0.16-1.47); MONOCYTES PERCENT AUTO 9 % (4-13); Mean Corpuscular HGB 32.5 pg (26.0-34.0); Mean Corpuscular HGB Conc 34.8 g/dL (31.5-36.5); Mean Corpuscular Volume 93 fL (80-100); Mean Platelet Volume 8.3 fL (9.1-12.4); NEUTROPHILS ABSOLUTE AUTO 6.96 K/mm3 (1.96-9.15); NEUTROPHILS PERCENT AUTO 67 % (41-73); Platelet Count 362 K/mm3 (150-400); RDW Coefficient Variation 11.6 % (11.7-14.2); RDW Standard Deviation 39.5 fL (35.1-46.3); Red Blood Cell Count 3.82 M/mm3 (3.80-5.20); White Blood Cell Count 10.46 K/mm3 (4.00-11.30)
[2024-04-24 06:48] LABS: Albumin, Blood 2.9 g/dL (3.4-5.0); Albumin/Globulin Ratio 0.8 (0.8-1.8); Bilirubin, Total 0.3 mg/dL (0.1-1.0); Bun/Creatinine Ratio 40.5 (12.0-20.0); Calcium, Blood 8.6 mg/dL (8.5-10.1); Creatinine, Blood 0.59 mg/dL (0.40-1.00); Globulin, Blood 3.7 g/dL (2.2-4.0); Potassium, Blood 3.9 mmol/L (3.5-5.5); Total Protein, Blood 6.6 g/dL (6.4-8.2)
[2024-04-24 07:45] VITALS: BP 132/85
[2024-04-24] MEDS ORDERED: PRED20 PO (11:48)
[2024-04-24] MEDS ORDERED: LINE600 PO (11:48)
[2024-04-24] MEDS ORDERED: HYDCHL25 PO (11:48)
[2024-04-24] MEDS ORDERED: VISBIOME 112.51 EACH PO (11:49)
[2024-04-24] MEDS ORDERED: NICO21TP TOP (11:49)
[2024-04-24] MEDS ORDERED: IBUP600 PO (11:49)
--- NOTE | 2024-04-24 13:30 | NUR ---
SHIFT SUMMARY AND DISCHARGE PATIENT ALERT AND INTERACTIVE. PATIENT INDEPENDENT IN THE ROOM. PATIENT STATES THAT ORAL ABCESS IS NOW DRAINING. PATIENT HAS BEEN INSTRUCTED TO DO SALINE RINSES BY HYGENIST. DISCHARGE INSTRUCTIONS REVIEWED WITH PATIENT AND DAUGHTER. HOME O2 EVAL DONE. PATIENT BEING DISCHARGED WITH O2. [facility]. PATIENT TAKEN OUT VIA WHEELCHAIR BY NOZZLE CEMENT SPRAYER HELPER. ROOM CHECK DONE BEFORE DEPARTURE. IV DC'D PRIOR TO DISCHARGE.
== END 2024-04-24 13:45 | disposition home or self-care (01) | DRG 158 ==
LOC: ER 10:22 → MEDS 15:15 → ER 17:35 → MEDS 18:11 → ENPENDDIS 04-24 11:33 → MEDS 04-24 13:45
PROVIDERS: Family Medicine Adult Medicine; Physician Assistant; Student in an Organized Health Care Education/Training Program; ADMIT Hospitalist
DX: K04.7 Periapical abscess without sinus (principal); J44.1 Chronic obstructive pulmonary disease with (acute) exacerbation; N17.9 Acute kidney failure, unspecified; E11.9 Type 2 diabetes mellitus without complications; I10 Essential (primary) hypertension; E78.5 Hyperlipidemia, unspecified; B96.89 Other specified bacterial agents as the cause of diseases classified elsewhere; K21.9 Gastro-esophageal reflux disease without esophagitis; I48.91 Unspecified atrial fibrillation; Z98.890 Other specified postprocedural states; Z98.51 Tubal ligation status; E86.0 Dehydration; F17.210 Nicotine dependence, cigarettes, uncomplicated; Z88.0 Allergy status to penicillin; Z88.2 Allergy status to sulfonamides; Z79.899 Other long term (current) drug therapy; Z86.14 Personal history of Methicillin resistant Staphylococcus aureus infection
CPT/HCPCS: 36415; 70491; 80048; 80053; 82803; 82947; 83735; 84100; 85025; 87040; 94640; 94664; 94760; 94761; 94762; 96361; 96365-59; 96366; 96372; 96375; 96376; 99285-25; A9270; G0378; J1100; J1650; J3370; J7030; J7040; J7050; J7120; Q9967

== ENCOUNTER 2024-04-28 22:28 | Inpatient (IN) | payer OTHER ==
[~2024-04-28] VITALS: Ht 167.6 cm; Wt 99.8 kg
[~2024-04-28 22:28] MED LIST changes: +CODACE30 PO; +GLYCOPYRROLATE INH; +HYDCHL25 PO; +IBUP600 PO; +LOSARTAN POTASS25 M2 PO; +METFORMIN HCL500 M2 PO; +NICO21TP TOP; +PRED20 PO; +PROAIR RESPICL90 MCG INH; +ROSUVASTATIN CA10 MG PO; +STIOLTO RESPIMAT4 G1 INH; +[UNRECOGNIZED DRUG - OTHER] INH
[2024-04-28 23:21] LABS: Hematocrit 30.6 % (33.0-51.0); Hemoglobin 10.3 g/dL (11.5-16.0); Mean Corpuscular HGB 32.1 pg (26.0-34.0); Mean Corpuscular HGB Conc 33.7 g/dL (31.5-36.5); Mean Corpuscular Volume 95 fL (80-100); Mean Platelet Volume 8.3 fL (9.1-12.4); Platelet Count 442 K/mm3 (150-400); RDW Coefficient Variation 11.8 % (11.7-14.2); RDW Standard Deviation 41.1 fL (35.1-46.3); Red Blood Cell Count 3.21 M/mm3 (3.80-5.20)
[2024-04-28 23:41] LABS: BAND PERCENT MAN 3 % (0-8); BASOPHILS ABSOLUTE MAN 0.25 K/mm3 (0.00-0.23); BASOPHILS PERCENT MAN 1 % (0-2); EOSINOPHILS ABSOLUTE MAN 0.25 K/mm3 (0.00-0.68); EOSINOPHILS PERCENT MAN 1 % (0-6); LYMPHOCYTES ABSOLUTE MAN 4.08 K/mm3 (0.84-5.20); LYMPHOCYTES PERCENT MAN 16 % (21-46); MONOCYTES ABSOLUTE MAN 1.53 K/mm3 (0.16-1.47); MONOCYTES PERCENT MAN 6 % (4-13); NEUTROPHILS ABSOLUTE MAN 19.38 K/mm3 (1.96-9.15); SEG NEUTROPHILS PERCENT MAN 73 % (41-73); TOTAL CELLS COUNTED 100
[2024-04-28 23:44] LABS: Albumin/Globulin Ratio 0.9 (0.8-1.8); Bilirubin, Total 0.2 mg/dL (0.1-1.0); Bun/Creatinine Ratio 43.3 (12.0-20.0); Calcium, Blood 10.1 mg/dL (8.5-10.1); Creatinine, Blood 0.95 mg/dL (0.40-1.00); Globulin, Blood 3.2 g/dL (2.2-4.0); Potassium, Blood 4.4 mmol/L (3.5-5.5); Total Protein, Blood 6.2 g/dL (6.4-8.2)
[2024-04-29] MEDS ORDERED: NS 1,000 ML IV SCH (01:00)
[2024-04-29] MEDS ORDERED: MetroNIDAZOLE 500MG/NS 100 ml 100 ML IV ONE (01:00)
[2024-04-29] MEDS ORDERED: CefTRIAXone Sodium 1,000 MG in NS 50 ML IV ONE (01:00)
[2024-04-29 01:09] LABS: Source, Urine Clean Catch
[2024-04-29 01:12] LABS: Bilirubin, Urine Neg (Neg); Blood, Urine 4+ (Neg); Glucose Qualitative, Urine Neg (Neg); Ketones, Urine Neg (Neg); Leukocyte Esterase, Urine Neg (Neg); Nitrite, Urine Neg (Neg); Protein, Urine 2+ (Neg); Urobilinogen, Urine NORM (Normal)
[2024-04-29 01:20] LABS: Hematocrit 28.9 % (33.0-51.0); Hemoglobin 9.7 g/dL (11.5-16.0)
[2024-04-29 01:35] LABS: Appearance, Urine Clear (Clear); Color, Urine Pale Yellow (P-Yellow)
[2024-04-29] MEDS ORDERED: FLU VACC TS2024-25(6MOS UP)/PF 45 MCG/0.5 ML SYRINGE IM ONE (01:35)
[2024-04-29] MEDS ORDERED: Ondansetron HCl 2 MG / ML 2ML Vial IV PRN (01:35)
[2024-04-29 01:37] LABS: Amorphous Light (0-Heavy); Bacteria Few /hpf; Red Blood Cells, Urine 0-2 /hpf (0-2); Squamous Epithelial Cells Few /hpf (Few); White Blood Cells, Urine 0-2 /hpf (0-5)
[2024-04-29] MEDS ORDERED: Lactated Ringer's 1,000 ML IV SCH (02:00)
[2024-04-29 03:23] VITALS: BP 137/73
--- NOTE | 2024-04-29 04:10 | NUR ---
SHIFT SUMMARY PT ARRIVED TO MEDICAL FLOOR @0320. PT TRANSFERRED INDEPENDENTLY FROM THE [facility] TO THE HOSPITAL BED. PT IS A/O X4, PLEASANT AND COOPERATIVE WITH CARE. NPO. LR 1 OUT OF 2 BAGS INFUSING ORDERED. SARWAT CHARGE NURSE COMPLETED THE ADMISSION ASSESSMENT, SKIN CHECK WITH THIS TRACK PRODUCTION ENGINEER. BED AT THE LOWEST POSITION, CALL LIGHT W/I REACH. PT IS ABLE TO MKE HER NEEDS KNOWN.
[2024-04-29 06:01] LABS: BASOPHILS ABSOLUTE AUTO 0.04 K/mm3 (0.00-0.23); BASOPHILS PERCENT AUTO 0 % (0-2); EOSINOPHILS ABSOLUTE AUTO 0.07 K/mm3 (0.00-0.68); EOSINOPHILS PERCENT AUTO 0 % (0-6); Hematocrit 26.2 % (33.0-51.0); Hemoglobin 8.7 g/dL (11.5-16.0); IMMATURE GRAN ABSOLUTE AUTO 0.13 K/mm3 (0.00-0.10); IMMATURE GRAN PERCENT AUTO 1 % (0-1); LYMPHOCYTES ABSOLUTE AUTO 3.25 K/mm3 (0.84-5.20); LYMPHOCYTES PERCENT AUTO 20 % (21-46); MONOCYTES ABSOLUTE AUTO 0.79 K/mm3 (0.16-1.47); MONOCYTES PERCENT AUTO 5 % (4-13); Mean Corpuscular HGB Conc 33.2 g/dL (31.5-36.5); Mean Corpuscular Volume 96 fL (80-100); Mean Platelet Volume 8.4 fL (9.1-12.4); NEUTROPHILS PERCENT AUTO 74 % (41-73); Platelet Count 343 K/mm3 (150-400); RDW Coefficient Variation 11.9 % (11.7-14.2); RDW Standard Deviation 41.9 fL (35.1-46.3); Red Blood Cell Count 2.72 M/mm3 (3.80-5.20); White Blood Cell Count 16.18 K/mm3 (4.00-11.30)
[2024-04-29 06:12] LABS: International Normalized Ratio 1.06; Prothrombin Time Results 11.3 Sec (9.7-11.5)
[2024-04-29 06:30] LABS: Albumin, Blood 2.7 g/dL (3.4-5.0); Bilirubin, Total 0.2 mg/dL (0.1-1.0); Bun/Creatinine Ratio 60.7 (12.0-20.0); Calcium, Blood 8.7 mg/dL (8.5-10.1); Creatinine, Blood 0.69 mg/dL (0.40-1.00); Globulin, Blood 2.7 g/dL (2.2-4.0); Potassium, Blood 4.2 mmol/L (3.5-5.5); Total Protein, Blood 5.4 g/dL (6.4-8.2)
[2024-04-29 07:52] VITALS: BP 121/55
[2024-04-29 09:15] LABS: BASOPHILS ABSOLUTE AUTO 0.04 K/mm3 (0.00-0.23); BASOPHILS PERCENT AUTO 0 % (0-2); EOSINOPHILS ABSOLUTE AUTO 0.09 K/mm3 (0.00-0.68); EOSINOPHILS PERCENT AUTO 1 % (0-6); Hemoglobin 8.5 g/dL (11.5-16.0); IMMATURE GRAN ABSOLUTE AUTO 0.09 K/mm3 (0.00-0.10); IMMATURE GRAN PERCENT AUTO 1 % (0-1); LYMPHOCYTES ABSOLUTE AUTO 3.34 K/mm3 (0.84-5.20); LYMPHOCYTES PERCENT AUTO 23 % (21-46); MONOCYTES ABSOLUTE AUTO 0.71 K/mm3 (0.16-1.47); MONOCYTES PERCENT AUTO 5 % (4-13); Mean Corpuscular HGB 32.1 pg (26.0-34.0); Mean Corpuscular Volume 94 fL (80-100); Mean Platelet Volume 8.3 fL (9.1-12.4); NEUTROPHILS ABSOLUTE AUTO 10.44 K/mm3 (1.96-9.15); NEUTROPHILS PERCENT AUTO 71 % (41-73); Platelet Count 354 K/mm3 (150-400); RDW Coefficient Variation 11.9 % (11.7-14.2); RDW Standard Deviation 40.9 fL (35.1-46.3); Red Blood Cell Count 2.65 M/mm3 (3.80-5.20); White Blood Cell Count 14.71 K/mm3 (4.00-11.30)
--- NOTE | 2024-04-29 14:48 | NUR ---
PT CALLED AID INTO ROOM AT 1142 PT HAD FILLED TOILET DARK RED WATERY STOOL. DR SOLOMON WAS NOTIFIED. DR SOLOMON STATED IF PT HAS AN ACTIVE BLEED SHE NEEDS TO BE SENT TO A HOSPITAL WITH A LEATHER GOODS II ASSEMBLER AND THE HOSPITALIST HANDLING THE CASE NEEDED TO GET THIS DONE. DR SOLOMON ALSO SAID PT WOULD BE GOOD TO STAY ON A CLEAR DIET. DR HOSKINS WAS NOTIFIED AT 1405 OF THE SITUATION AND WAS TOLD WHAT DR SOLOMON HAD ADVISED. WILL CONTINUE TO CLOSELY MONITOR PT.
--- NOTE | 2024-04-29 15:20 | NUR ---
PT CALLED AID AT 1512 WITH TOILET FILLED AGAIN WITH WATERY DARK RED STOOL AGAIN. DR HOSKINS WAS NOTIFIED IMMEDIATELY AND STATED HE WOULD ORDER A STAT HGB. WILL CONTINUE TO MONITOR CLOSELY.
[2024-04-29 15:56] VITALS: BP 118/42
[2024-04-29 15:57] LABS: Hematocrit 24.1 % (33.0-51.0); Hemoglobin 8.2 g/dL (11.5-16.0); Mean Corpuscular HGB 32.7 pg (26.0-34.0); Mean Corpuscular Volume 96 fL (80-100); Mean Platelet Volume 8.2 fL (9.1-12.4); Platelet Count 326 K/mm3 (150-400); RDW Coefficient Variation 11.9 % (11.7-14.2); RDW Standard Deviation 41.7 fL (35.1-46.3); Red Blood Cell Count 2.51 M/mm3 (3.80-5.20); White Blood Cell Count 12.34 K/mm3 (4.00-11.30)
--- NOTE | 2024-04-29 16:58 | NUR ---
PT IS AOX4 AND COOPERATIVE OF CARE. PT IS ABLE TO MAKE NEEDS KNOWN. CONTINUE TO MONITOR BLOODY STOOLS. HGB IN AM WAS 8.5 LAST ONE TAKE WAS 8.2. DR HOSKINS IS AWARE AND ORDERED FREQUENT LABS TO MONITOR CLOSELY. PT IS INDEPENDENT AND DENIES STEWART EPISODES OF DIZZINESS OR FEELING LIGHT HEADED. WILL CONTINUE TO MONITOR CALL LIGHT IS WITHIN REACH.
[2024-04-29 19:09] VITALS: BP 142/57
[2024-04-29 20:37] LABS: Hematocrit 22.9 % (33.0-51.0); Hemoglobin 7.6 g/dL (11.5-16.0); Mean Corpuscular HGB 32.3 pg (26.0-34.0); Mean Corpuscular HGB Conc 33.2 g/dL (31.5-36.5); Mean Corpuscular Volume 97 fL (80-100); Mean Platelet Volume 8.6 fL (9.1-12.4); Platelet Count 315 K/mm3 (150-400); RDW Standard Deviation 42.9 fL (35.1-46.3); Red Blood Cell Count 2.35 M/mm3 (3.80-5.20); White Blood Cell Count 12.98 K/mm3 (4.00-11.30)
[2024-04-30] VITALS (9 sets, daily range): BP systolic 97–150; BP diastolic 42–92
[2024-04-30 00:29] LABS: Hematocrit 22.3 % (33.0-51.0); Hemoglobin 7.5 g/dL (11.5-16.0); Mean Corpuscular HGB 32.3 pg (26.0-34.0); Mean Corpuscular HGB Conc 33.6 g/dL (31.5-36.5); Mean Corpuscular Volume 96 fL (80-100); Mean Platelet Volume 8.1 fL (9.1-12.4); Platelet Count 320 K/mm3 (150-400); RDW Standard Deviation 42.4 fL (35.1-46.3); Red Blood Cell Count 2.32 M/mm3 (3.80-5.20); White Blood Cell Count 16.58 K/mm3 (4.00-11.30)
--- NOTE | 2024-04-30 03:26 | NUR ---
SHIFT SUMMARY PT IS A/O X4, INDEPENDENT W/I THE HOSPITAL ROOM. PT APPEARS WEARY. LR INFUSING ORDERED 75MLS/HR. PT DENIES PAIN AND DISCOMFORT DURING THIS SHIFT. NO ACUTE EVENTS. HGB 7.5 AT MIDNIGHT LAB. 1X BROWIN WATERY STOOL, NO RED COLOR NOTED. BED AT THE LOWEST POSITION, CALL LIGHT W/I REACH. PT WOULD LIKE TO SPEAK WITH THE PROVIDER TODAY REGARDING THE CURRENT PLAN OF CARE. CONTINUING THE PT EDUCATION. PT ABLE TO MAKE HER NEEDS KNOWN AND COOPERATIVE, PLEASANT.
[2024-04-30 06:05] LABS: Hematocrit 20.9 % (33.0-51.0); Hemoglobin 6.7 g/dL (11.5-16.0); Mean Corpuscular HGB 31.6 pg (26.0-34.0); Mean Corpuscular HGB Conc 32.1 g/dL (31.5-36.5); Mean Corpuscular Volume 99 fL (80-100); Mean Platelet Volume 8.4 fL (9.1-12.4); Platelet Count 314 K/mm3 (150-400); RDW Coefficient Variation 11.9 % (11.7-14.2); RDW Standard Deviation 43.1 fL (35.1-46.3); Red Blood Cell Count 2.12 M/mm3 (3.80-5.20); White Blood Cell Count 13.03 K/mm3 (4.00-11.30)
--- NOTE | 2024-04-30 06:20 | NUR ---
@0500 PT'S Hgb DROPPED FROM 7.5 TO 6.7. THIS POWER SYSTEM ELECTRICAL ENGINEER CONTACTED ON-CALL HOSPITALIST . 1 UNIT OF RBC'S PER TELEPHONE ORDER. ENTERED TO [employer]. CONSENT TO RECEIVE BLOOD IS SIGNED BY THE ED DRTk AND THE PT AND IS ALREADY IN PT'S CHART. WILL REPORT TO INCOMING SHIFT NURSE. NO BLOODY OR LOOSE STOOLS DURING THE FACE BURLER PER PT REPORT.
[2024-04-30 06:40] LABS: Bun/Creatinine Ratio 53.7 (12.0-20.0); Calcium, Blood 8.5 mg/dL (8.5-10.1); Creatinine, Blood 0.61 mg/dL (0.40-1.00); Potassium, Blood 3.9 mmol/L (3.5-5.5)
[2024-04-30] MEDS ORDERED: NS 500 ML IV SCH (07:55)
[2024-04-30 13:59] LABS: Hematocrit 22.9 % (33.0-51.0); Hemoglobin 7.7 g/dL (11.5-16.0); Mean Corpuscular HGB 32.9 pg (26.0-34.0); Mean Corpuscular HGB Conc 33.6 g/dL (31.5-36.5); Mean Corpuscular Volume 98 fL (80-100); Mean Platelet Volume 8.2 fL (9.1-12.4); Platelet Count 281 K/mm3 (150-400); RDW Coefficient Variation 12.3 % (11.7-14.2); Red Blood Cell Count 2.34 M/mm3 (3.80-5.20); White Blood Cell Count 15.61 K/mm3 (4.00-11.30)
--- NOTE | 2024-04-30 15:24 | NUR ---
SHIFT SUMMARY MS ACEVEDO RECEIVED 1 UNIT PRBCS THIS MORNING. SHE TOLERATED THE INFUSION WELL. NO ADVERSE REACTIONS NOTED. NO C/O PAIN OR SOB. SHE REMAINS ON CLEAR LIQUID DIET WITH A PLAN FOR COLONOSCOPY 05/01. 1 BLACK STOOL SO FAR THIS SHIFT. ON TELEMETRY IN , NO CALLS FROM CYBER INTEL PLANNER. UP INDEPENDENTLY TO THE SHOWER AND BATHROOM, STEADY GAIT. BED LOW, CALL LIGHT IN REACH.
[2024-04-30] MEDS ORDERED: Pantoprazole Sodium 40 MG Injection IV ONE (17:00)
[2024-04-30] MEDS ORDERED: Polyethylene Glycol 3350 17 gm PO ONE (18:00)
[2024-05-01] VITALS (12 sets, daily range): BP systolic 75–148; BP diastolic 42–73
--- NOTE | 2024-05-01 05:16 | NUR ---
SHIFT SUMMARY NOC PT A/O X 4. PLEASANT AND COOPERATIVE WITH CARE. VSS. NO ACUTE EVENTS TO REPORT. PT HAS BEEN ON SIP AND CHIPS SINCE 0100 AND WILL BE NPO @ 1000 TODAY FOR COLONOSCOPY IN PM. PT HAS STARTD ALVA BOWL PREP @ 0600 THIS AM. PT HAS HAD MULTIPLE LIQUID BLACK/GREEN STOOLS THIS SHIFT. PT HGB 7.7 YESTERDAY AFTER RECEIVING 1 UNIT PRBC, AWAITING AM LABS FOR POSSIBLE TRANSFUSION. PT ON TELE SINUS RHYTHM IN 'S. PT CURRENTLY RESTING WITH BED IN LOWEST POSITION, AND CALL LIGHT ASHANTI GARCIA.
[2024-05-01] MEDS ORDERED: Peg/Electrolytes 4,000 ML BTL PO ONE ×2 (06:00→08:00)
[2024-05-01] MEDS ORDERED: Pantoprazole Sodium 40 MG Injection IV SCH (06:00)
[2024-05-01 07:05] LABS: Hematocrit 18.7 % (33.0-51.0); Hemoglobin 6.4 g/dL (11.5-16.0)
[2024-05-01] MEDS ORDERED: Lactated Ringer's 1,000 ML IV SCH (14:50)
[2024-05-01] MEDS ORDERED: propofoL 80 ML IV ONE (15:31)
--- NOTE | 2024-05-01 15:52 | NUR ---
REPORT RECEIVED VERIFIED PT A/O X 4 AND IS ATTEMPTING TO DRINK GOLYTLY FOR PROCEDURE. PT HAVING VERY DARK BLACK AND TARRY STOOLS, C/O SOME DIZZINESS AND TIREDNESS BUT JORDY WELL. PT HAS CALL LIGHT AT BEDSIDE IF NEEDING ASSISTENCE.
--- NOTE | 2024-05-01 15:54 | NUR ---
PT REFUSING TO FINISH PREP, MAKING HER SICK TO HER STOMACH AND DOSENT WANT TO CONTINUE. SDS WAS NOTIFIED.
--- NOTE | 2024-05-01 15:55 | NUR ---
1030 BLOOD STARTED, AND JORDY WELL PT WAS GIVEN ZOFRAN AND ENC TO FINISH PREP. 1245 PT CONT BLOOD TRANSFUSION AND HAS NO S/S OF DISTRESS. 1300 PT FINISHED PREP AND IS NOW NPO.
--- NOTE | 2024-05-01 15:55 | NUR ---
DR HOSKINS NOTIFIED OF LOW H/H BLOOD WAS ORDERED PT VSS.
--- NOTE | 2024-05-01 15:57 | NUR ---
1500 PT TAKEN TO PROCEDURE.
--- NOTE | 2024-05-01 16:12 | NUR ---
05/01/24 1612 Jae Mckeon History, Chart, Medications and Allergies reviewed before start of procedure. MONITOR INTACT WITH CONTINUOUS PULSE OXIMETRY, CONTINUOUS END TITAL CO2, AND INTERMITTENT BLOOD PRESSURE. 3-LEAD EKG REVIEWED WITH PHYSICIAN PRIOR TO START OF PROCEDURE. O2 VIA POM INTACT THROUGHOUT SEDATION/PROCEDURE. Bite Block Placed. TELE BOX REMOVED FROM PT AND NOTIFIED TABLEAU ANALYST OF SHUTTING OFF.
[2024-05-01 17:42] LABS: Hematocrit 19.9 % (33.0-51.0); Hemoglobin 6.8 g/dL (11.5-16.0)
[2024-05-01] MEDS ORDERED: Lactated Ringer's 500 ML IV SCH (18:00)
--- NOTE | 2024-05-01 19:41 | NUR ---
pt arrived from procedure a/o drowsy yet responsive. vss were not stable and pt was noted to be hypotensive, pt was laid flat, and placed in trendelenburg, and Dr Bahena was notified, 500ml bolus was given with little response. H/H was reported to Dr. Bahena and 1 unit PRBC was ordered and styarted, response was good and pt stated she was feel great. pt was sat up for dinner and finished meal, VSS when report given to oncoming nurse.
--- NOTE | 2024-05-01 22:13 | NUR ---
pt alert/oriented. Independently used bsc.
--- NOTE | 2024-05-02 04:18 | NUR ---
SHIFT SUMMARY PATIENT FINISHED ONE UNIT OF PRBC STARTED ON DAY SHIFT. TOLERATED WELL. AXOX 4 AND INDEPENDENT. DENIES CHEST PAIN AND N/V. ON 2L O2 NC PRN AND TRIAL OFF AND DESTAT INTO HIGH 80'S. PIV INTACT. VSS/AFEBRILE. TELE MONITOR NSR 88. CALL LIGHT IN REACH. BED IN LOWEST POSITION. WILL CONTINUE TO MONITOR UNTIL DAY SHIFT NURSE ASSUMES CARE.
[2024-05-02] MEDS ORDERED: Omeprazole 20 MG CapCR PO SCH (06:00)
[2024-05-02 06:11] LABS: Hematocrit 21.4 % (33.0-51.0); Hemoglobin 7.1 g/dL (11.5-16.0); Mean Corpuscular HGB 32.3 pg (26.0-34.0); Mean Corpuscular HGB Conc 33.2 g/dL (31.5-36.5); Mean Corpuscular Volume 97 fL (80-100); Mean Platelet Volume 8.8 fL (9.1-12.4); Platelet Count 215 K/mm3 (150-400); RDW Coefficient Variation 13.4 % (11.7-14.2); RDW Standard Deviation 47.8 fL (35.1-46.3); White Blood Cell Count 11.37 K/mm3 (4.00-11.30)
[2024-05-02 06:44] LABS: Bun/Creatinine Ratio 20.5 (12.0-20.0); Calcium, Blood 8.5 mg/dL (8.5-10.1); Creatinine, Blood 0.64 mg/dL (0.40-1.00); Potassium, Blood 3.6 mmol/L (3.5-5.5)
[2024-05-02 08:04] VITALS: BP 117/46
[2024-05-02 10:04] LABS: Hematocrit 22.2 % (33.0-51.0); Hemoglobin 7.4 g/dL (11.5-16.0); Mean Corpuscular HGB 32.3 pg (26.0-34.0); Mean Corpuscular HGB Conc 33.3 g/dL (31.5-36.5); Mean Corpuscular Volume 97 fL (80-100); Mean Platelet Volume 8.6 fL (9.1-12.4); NRBC ABSOLUTE 0.02 K/mm3 (0.00-0.02); NRBC Auto 0.2 /100 WBC (0.0-0.2); Platelet Count 238 K/mm3 (150-400); RDW Coefficient Variation 13.4 % (11.7-14.2); RDW Standard Deviation 47.4 fL (35.1-46.3); Red Blood Cell Count 2.29 M/mm3 (3.80-5.20); White Blood Cell Count 11.08 K/mm3 (4.00-11.30)
[2024-05-02 10:21] VITALS: BP 138/59
[2024-05-02 15:27] VITALS: BP 123/65
--- NOTE | 2024-05-02 17:00 | NUR ---
REPORT RECEIVED VERIFIED PT DOING MUCH BETTER TODAY NO C/O PAIN NO S/S OF DISTRESS, PT ABLE TO MAKE NEEDS KNOWN AND IS STATING THAT SHE WILL CALL IF NEEDING ASSISTENCE. CALL LIGHT WITHIN REACH. POSSIBLE DISCHARGE TOMORROW PT CURRENTLY ON RA AND JORDY WELL.
[2024-05-02 17:19] LABS: Hematocrit 22.2 % (33.0-51.0); Hemoglobin 7.4 g/dL (11.5-16.0); Mean Corpuscular HGB 32.3 pg (26.0-34.0); Mean Corpuscular HGB Conc 33.3 g/dL (31.5-36.5); Mean Corpuscular Volume 97 fL (80-100); Mean Platelet Volume 8.7 fL (9.1-12.4); Platelet Count 252 K/mm3 (150-400); RDW Coefficient Variation 13.4 % (11.7-14.2); RDW Standard Deviation 47.5 fL (35.1-46.3); Red Blood Cell Count 2.29 M/mm3 (3.80-5.20); White Blood Cell Count 12.84 K/mm3 (4.00-11.30)
[2024-05-02 19:28] VITALS: BP 145/61
[2024-05-02 21:59] LABS: Hematocrit 20.5 % (33.0-51.0); Hemoglobin 6.9 g/dL (11.5-16.0); Mean Corpuscular HGB 32.7 pg (26.0-34.0); Mean Corpuscular HGB Conc 33.7 g/dL (31.5-36.5); Mean Corpuscular Volume 97 fL (80-100); Mean Platelet Volume 8.5 fL (9.1-12.4); Platelet Count 246 K/mm3 (150-400); RDW Coefficient Variation 13.3 % (11.7-14.2); RDW Standard Deviation 47.1 fL (35.1-46.3); Red Blood Cell Count 2.11 M/mm3 (3.80-5.20)
--- NOTE | 2024-05-02 22:43 | NUR ---
Hgb: 6.9 DOWN FROM 7.4, HOSPITALIST DR LAZAR NOTIFIED AND ORDERED ONE UNIT PRBC.
[2024-05-03] VITALS (7 sets, daily range): BP systolic 119–155; BP diastolic 53–64
--- NOTE | 2024-05-03 02:56 | NUR ---
PATIENT FINISHED ONE UNIT PRBC, TOLERATED WELL. WCTM.
--- NOTE | 2024-05-03 04:14 | NUR ---
SHIFT SUMMARY PATIENT REQUIRED ONE UNIT PRBC ORDERED BY HOSPITALIST DR LAZAR AFTER HgB 6.9, TOLERATED WELL. ALERT, ORIENTED, AND INDEPENDENT IN ROOM. DENIES CHEST PAIN, SOB, AND N/V. VSS/AFEBRILE. PIV INTACT. TELE MONITOR NSR 96. AWAKE MOST OF THE SHIFT. CALL LIGHT IN REACH. BED IN LOWEST POSITION. WILL CONTINUE TO MONITOR UNTIL DAY SHIFT NURSE ASSUMES CARE.
[2024-05-03 06:08] LABS: Hematocrit 24.7 % (33.0-51.0); Hemoglobin 8.3 g/dL (11.5-16.0); Mean Corpuscular HGB Conc 33.6 g/dL (31.5-36.5); Mean Corpuscular Volume 95 fL (80-100); Mean Platelet Volume 8.7 fL (9.1-12.4); Platelet Count 253 K/mm3 (150-400); Red Blood Cell Count 2.59 M/mm3 (3.80-5.20); White Blood Cell Count 11.33 K/mm3 (4.00-11.30)
[2024-05-03 06:38] LABS: Albumin, Blood 2.6 g/dL (3.4-5.0); Albumin/Globulin Ratio 0.8 (0.8-1.8); Bilirubin, Total 0.3 mg/dL (0.1-1.0); Bun/Creatinine Ratio 12.3 (12.0-20.0); Calcium, Blood 8.5 mg/dL (8.5-10.1); Creatinine, Blood 0.65 mg/dL (0.40-1.00); Globulin, Blood 3.2 g/dL (2.2-4.0); Potassium, Blood 3.5 mmol/L (3.5-5.5); Total Protein, Blood 5.8 g/dL (6.4-8.2)
[2024-05-03 17:16] LABS: Hematocrit 25.1 % (33.0-51.0); Hemoglobin 8.4 g/dL (11.5-16.0)
--- NOTE | 2024-05-03 18:04 | NUR ---
report received, pt doing very well and hoping to go home today. pt received i unit of PRBC at night and todays h/h is wnl. no bm since 05/01/24, no c/o pain no s/s of distress.
--- NOTE | 2024-05-03 18:05 | NUR ---
dr rowe in with pt and pt agree to stay additional day. family at bedside no change.
--- NOTE | 2024-05-03 18:06 | NUR ---
Small BM with no bleeding noted at 1730
[2024-05-04 04:23] VITALS: BP 94/63
--- NOTE | 2024-05-04 04:28 | NUR ---
SHIFT SUMMARY PATIENT HAD NO ACUTE CHANGES. ALERT ORIENTED AND INDEPENDENT IN ROOM. DENIES CHEST PAIN, SOB, AND N/V. TELE MONITOR NSR 86. CALL LIGHT IN REACH. BED IN LOWEST POSITION. WILL CONTINUE TO MONITOR UNTIL DAY SHIFT NURSE ASSUMES CARE.
[2024-05-04 05:51] LABS: BASOPHILS ABSOLUTE AUTO 0.03 K/mm3 (0.00-0.23); BASOPHILS PERCENT AUTO 0 % (0-2); EOSINOPHILS ABSOLUTE AUTO 0.09 K/mm3 (0.00-0.68); EOSINOPHILS PERCENT AUTO 1 % (0-6); Hematocrit 24.2 % (33.0-51.0); IMMATURE GRAN ABSOLUTE AUTO 0.06 K/mm3 (0.00-0.10); IMMATURE GRAN PERCENT AUTO 1 % (0-1); LYMPHOCYTES ABSOLUTE AUTO 2.09 K/mm3 (0.84-5.20); LYMPHOCYTES PERCENT AUTO 20 % (21-46); MONOCYTES ABSOLUTE AUTO 1.23 K/mm3 (0.16-1.47); MONOCYTES PERCENT AUTO 12 % (4-13); Mean Corpuscular HGB 31.4 pg (26.0-34.0); Mean Corpuscular HGB Conc 33.1 g/dL (31.5-36.5); Mean Corpuscular Volume 95 fL (80-100); Mean Platelet Volume 8.5 fL (9.1-12.4); NEUTROPHILS ABSOLUTE AUTO 6.74 K/mm3 (1.96-9.15); NEUTROPHILS PERCENT AUTO 66 % (41-73); Platelet Count 312 K/mm3 (150-400); RDW Coefficient Variation 13.9 % (11.7-14.2); RDW Standard Deviation 47.2 fL (35.1-46.3); Red Blood Cell Count 2.55 M/mm3 (3.80-5.20); White Blood Cell Count 10.24 K/mm3 (4.00-11.30)
[2024-05-04 07:34] VITALS: BP 93/58
[2024-05-04] MEDS ORDERED: OMEP20ER PO (11:26)
--- NOTE | 2024-05-04 12:47 | NUR ---
DISCHARGE NOTE PT DISCHARGED TO HOME, PICKED UP BY HER DAUGHTER. TAKEN TO HER VEHICLE BY WHEELCHAIR. IV REMOVED, TELE RETURNED. DISCHARAGE MEDICATIONS FAXED TO THE PHARMACY OF HER CHOICE. DISCHARGE INFORMATION REVIEWED WITH THE PT.
== END 2024-05-04 12:48 | disposition home or self-care (01) | DRG 378 ==
LOC: ER 22:28 → MEDS 04-29 01:33
PROVIDERS: Emergency Medicine; Family Medicine; Internal Medicine Gastroenterology; Physician Assistant; ADMIT Student in an Organized Health Care Education/Training Program
PROC: 30233N1 Transfusion of Nonautologous Red Blood Cells into Peripheral Vein, Percutaneous Approach (ICD-10-PCS; 2024-04-29)
PROC: 0DB78ZX Excision of Stomach, Pylorus, Via Natural or Artificial Opening Endoscopic, Diagnostic (ICD-10-PCS; principal; 2024-05-01 14:30)
PROC: 0W3P8ZZ Control Bleeding in Gastrointestinal Tract, Via Natural or Artificial Opening Endoscopic (ICD-10-PCS; 2024-05-01 14:30)
DX: K26.4 Chronic or unspecified duodenal ulcer with hemorrhage (principal); D62 Acute posthemorrhagic anemia; K55.21 Angiodysplasia of colon with hemorrhage; K57.31 Diverticulosis of large intestine without perforation or abscess with bleeding; K25.4 Chronic or unspecified gastric ulcer with hemorrhage; I95.9 Hypotension, unspecified; I10 Essential (primary) hypertension; J44.9 Chronic obstructive pulmonary disease, unspecified; E66.9 Obesity, unspecified; E86.0 Dehydration; B96.81 Helicobacter pylori [H. pylori] as the cause of diseases classified elsewhere; I48.91 Unspecified atrial fibrillation; E11.9 Type 2 diabetes mellitus without complications; E78.5 Hyperlipidemia, unspecified; K64.4 Residual hemorrhoidal skin tags; K64.8 Other hemorrhoids; K76.0 Fatty (change of) liver, not elsewhere classified; Z88.0 Allergy status to penicillin; Z88.2 Allergy status to sulfonamides; Z79.84 Long term (current) use of oral hypoglycemic drugs; Z79.899 Other long term (current) drug therapy; Z86.14 Personal history of Methicillin resistant Staphylococcus aureus infection; Z98.890 Other specified postprocedural states; Z86.19 Personal history of other infectious and parasitic diseases; Z68.35 Body mass index [BMI] 35.0-35.9, adult
CPT/HCPCS: 36415; 36430; 74174; 80048; 80053; 81001; 82947; 83690; 83735; 85014; 85018; 85025; 85027; 85610; 86850; 86900; 86901; 86923; 93005; 93010; 94760; 96374-59; 96375-59; 99285-25; A9270; J0696; J2405; J2470; J2704; J7030; J7040; J7120; P9016; Q9967